=== PATIENT | female | born 1955 | race Caucasian/White ===

== ENCOUNTER 2016-09-15 17:22 | Emergency (ER) | payer OTHER ==
[~2016-09-15] VITALS: Ht 172.7 cm; Wt 74.4 kg
[2016-09-15 17:45] VITALS: BP 135/96
[2016-09-15] MEDS ORDERED: PHENERGAN/CODEIN5 ML PO (17:52)
--- NOTE | 2016-09-15 17:52 | NUR ---
Patient ambulated to bed 5. RN evaluating patient at bedside.
--- NOTE | 2016-09-15 17:52 | NUR ---
PATIENT PRESENTS TO ED WITH COUGH X 4 DAYS .DENIES N/V/D; SKIN IS PINK/WARM/DRY; AAOX4 WITH EVEN AND STEADY GAIT; LUNGS CLEAR BL; HR EVEN AND REGULAR; PT DENIES ANY FEVER, CP, SOB, AT THIS TIME; PATIENT STATES PAIN OF 0/10 AT THIS TIME; VSS; PATIENT POSITIONED FOR COMFORT; HOB ELEVATED; BEDRAILS UP X2; BED DOWN. ER MD MADE AWARE OF PT STATUS.
--- NOTE | 2016-09-15 18:03 | NUR ---
Dr. Dhaliwal evaluating patient at bedside.
[2016-09-15] MEDS ORDERED: IPRATROPIUM 0.02% 0.5 MG/2.5 ML NEBU INH ONE (18:10)
[2016-09-15] MEDS ORDERED: DEXAMETHASONE 4 MG/ML VIAL PO ONE (18:10)
[2016-09-15] MEDS ORDERED: ALBUTEROL 0.083% 2.5 MG/3 ML NEBU INH ONE (18:10)
--- NOTE | 2016-09-15 19:10 | NUR ---
RECEIVED REPORT FROM JASWINDER SANTOS. PT STABLE AWAITING FOR RESULTS.
[2016-09-15 19:20] VITALS: BP 139/91
--- NOTE | 2016-09-15 19:20 | NUR ---
Patient discharged with v/s stable. Written and verbal after care instructions given and explained. Patient alert, oriented and verbalized understanding of instructions. Ambulatory with steady gait. All questions addressed prior to discharge. ID band removed. Patient advised to follow up with PMD. Rx of CODEINE/PROMETHAZINE, AZITHROMYCIN, ALBUTEROL given. Patient educated on indication of medication including possible reaction and side effects. Opportunity to ask questions provided and answered.
== END 2016-09-15 19:20 | disposition home or self-care (01) ==
LOC: MED 17:26
DX: J45.909 Unspecified asthma, uncomplicated (principal); F17.200 Nicotine dependence, unspecified, uncomplicated; Z88.0 Allergy status to penicillin; Z88.2 Allergy status to sulfonamides; Z90.89 Acquired absence of other organs; Z71.6 Tobacco abuse counseling
CPT/HCPCS: 36415; 71010; 87804; 94640; 99285; J1100; J7613; J7644; Q0092

== ENCOUNTER 2018-05-04 12:58 | Emergency (ER) | payer OTHER ==
[~2018-05-04] VITALS: Ht 172.7 cm; Wt 76.2 kg
[~2018-05-04 12:58] MED LIST: CODE118S2 PO
[2018-05-04 13:06] VITALS: BP 153/81
--- NOTE | 2018-05-04 13:08 | NUR ---
62 Y/O F W/C/O "I FEEL LIKE I'M HAVING A REALLY BAD HOT FLASH, I FEEL LIKE MY HEART IS RACING AND I FEEL SHORT OF BREATH." PT IS 98% O2 ON THE MONITOR. PULSE 89 ON MONITOR. PT DENIES N/V/D; SKIN IS INTACT, PINK/WARM/DRY; AAOX4, PERRL, WITH EVEN AND STEADY GAIT; LUNGS CLEAR BL, BREATHING UNLABORED; HR EVEN AND REGULAR, BL PERIPHERAL PULSES PRESENT; BS ACTIVE X4, NO TENDERNESS TO PALPATION, NO HEPATOSPLENOMEGALLY PALPATED, RESONANT TO PERCUSSION; PT DENIES ANY FEVER, CP, OR COUGH AT THIS TIME; PT STATES 0/10 PAIN AT THIS TIME; VSS; PATIENT POSITIONED FOR COMFORT; HOB ELEVATED; BEDRAILS UP X2; BED DOWN.
--- NOTE | 2018-05-04 13:24 | NUR ---
EKG BEING PERFORMED BY WILD ZHANG AT THIS TIME
--- NOTE | 2018-05-04 13:37 | NUR ---
PT NOW C/O CHEST PAIN 5/10 IN L SIDE OF CHEST. NOTIFIED
--- NOTE | 2018-05-04 13:38 | NUR ---
DR. COOPER AT BEDSIDE EVALUATING
[2018-05-04] MEDS ORDERED: KETOROLAC 60 MG/2 ML VIAL IM ONE (13:45)
[2018-05-04 14:00] VITALS: BP 148/79
--- NOTE | 2018-05-04 14:01 | NUR ---
Patient discharged with v/s stable. Written and verbal after care instructions given and explained. Patient alert, oriented and verbalized understanding of instructions. Ambulatory with steady gait. All questions addressed prior to discharge. ID band removed. Patient advised to follow up with PMD. Rx of MOTRIN, ATARAX given. Patient educated on indication of medication including possible reaction and side effects. Opportunity to ask questions provided and answered.
[2018-05-04] MEDS ORDERED: ORE25 PO (19:42)
[2018-05-04] MEDS ORDERED: ACYC800T1 PO (19:42)
[2018-05-05] MEDS ORDERED: METO25TE2 PO (16:01)
[2018-05-05] MEDS ORDERED: LISI10TA11 PO (16:01)
== END 2018-05-04 14:01 | disposition home or self-care (01) ==
LOC: MED 12:58
DX: R07.89 Other chest pain (principal); R00.2 Palpitations; I10 Essential (primary) hypertension; F17.200 Nicotine dependence, unspecified, uncomplicated; Z90.89 Acquired absence of other organs; Z88.0 Allergy status to penicillin; Z88.2 Allergy status to sulfonamides; Z79.899 Other long term (current) drug therapy
CPT/HCPCS: 81002; 81025; 93005; 96372; 99283; J1885

== ENCOUNTER 2018-05-04 17:07 | Inpatient (IN) | payer OTHER ==
[~2018-05-04] VITALS: Ht 172.7 cm; Wt 76.2 kg
--- NOTE | 2018-05-04 17:14 | NUR ---
PT AMBULATES TO BED 7
[2018-05-04 17:15] VITALS: BP 144/79
--- NOTE | 2018-05-04 17:20 | NUR ---
62 Y/O F W/C/O CHEST PAIN. PT WAS SEEN HERE EARLIER TODAY FOR SAME THING. PT STATES, "I AM NOT FEELING ANY BETTER, I NEEDED TO COME BACK." PT DENIES N/V/D; SKIN IS INTACT, PINK/WARM/DRY; AAOX4, PERRL, WITH EVEN AND STEADY GAIT; LUNGS CLEAR BL, BREATHING UNLABORED; HR EVEN AND REGULAR, BL PERIPHERAL PULSES PRESENT; BS ACTIVE X4, NO TENDERNESS TO PALPATION, NO HEPATOSPLENOMEGALLY PALPATED, RESONANT TO PERCUSSION; PT DENIES ANY FEVER, SOB, OR COUGH AT THIS TIME; PT STATES 6/10 PAIN AT THIS TIME; VSS; PATIENT POSITIONED FOR COMFORT; HOB ELEVATED; BEDRAILS UP X2; BED DOWN. ER MD MADE AWARE OF STATUS. HX: HTN RX:HYDROCHLOROTHYIOZIDE ALLERGIES: PENICILLINS, SULFA
--- NOTE | 2018-05-04 17:43 | NUR ---
XRAY AT BEDSIDE
[2018-05-04 17:44] LABS: BASOPHILS % (AUTO) 0.4 % (0.0-2.0); EOSINOPHILS % (AUTO) 0.4 % (0.0-4.0); HEMATOCRIT 38.5 % (36-48); LYMPHOCYTES # (AUTO) 3.5 K/uL (2.5-16.5); LYMPHOCYTES % (AUTO) 40.2 % (20.5-51.1); MEAN CORPUSCULAR HEMOGLOBIN 29 pg (27-31); MEAN CORPUSCULAR HGB CONC 34 g/dL (33-37); MEAN CORPUSCULAR VOLUME 85.8 fL (80-94); MONOCYTES # (AUTO) 0.7 K/uL (0.8-1.0); MONOCYTES % (AUTO) 7.5 % (1.7-9.3); NEUTROPHILS # (AUTO) 4.5 K/uL (1.8-7.7); NEUTROPHILS % (AUTO) 51.5 % (42.2-75.2); PLATELET COUNT (AUTO) 366 K/uL (140-450); RED BLOOD CELL COUNT(AUTO) 4.49 MIL/uL (4.20-5.40); RED CELL DISTRIBUTION WIDTH 13.4 % (11.6-13.7); WHITE BLOOD COUNT (AUTO) 8.8 K/uL (4.8-10.8)
[2018-05-04 17:57] LABS: PROTHROMBIN TIME 10.6 secs (10.8-13.4)
[2018-05-04 18:43] LABS: ANION GAP 13.1 (8-16); CARBON DIOXIDE 24.1 mmol/L (21-32); CREATININE 0.7 mg/dL (0.6-1.3); POTASSIUM 3.2 mmol/L (3.5-5.1); TOTAL BILIRUBIN 0.7 mg/dL (0.0-1.0)
[2018-05-04 18:44] LABS: ALBUMIN 3.5 g/dL (3.4-5.0)
[2018-05-04] MEDS ORDERED: NACL 0.9% 1,000 ML IV ONE ×2 (18:50→19:50)
--- NOTE | 2018-05-04 18:55 | NUR ---
PT. RESTING COMFORTABLY IN BED, RR EVEN AND UNLABORED. VSS. WILL CONTINUE TO MONITOR.
--- NOTE | 2018-05-04 19:10 | NUR ---
Pt report given to JASWINDER COPPOLA . Transfer of care at this time.
--- NOTE | 2018-05-04 19:11 | NUR ---
PT SITTING UP IN BED, VITALS STABLE. PT WAS ABLE TO AMBULATE WITH NO ASSIST.
[2018-05-04] MEDS ORDERED: ORE25 PO (19:42)
[2018-05-04] MEDS ORDERED: ACYC800T1 PO (19:42)
[2018-05-04] MEDS ORDERED: METOPROLOL 25 MG TAB PO ONE (19:50)
[2018-05-04] MEDS ORDERED: fentaNYL 0.05 MG/ML VIAL IVP ONE (19:50)
[2018-05-04] MEDS ORDERED: ASPIRIN 81 MG TAB.CHEW PO ONE (19:50)
[2018-05-04] MEDS ORDERED: POTASSIUM CHLORIDE 10 MEQ TABER PO ONE (20:20)
[2018-05-04] MEDS ORDERED: LORazepam 2 MG/ML VIAL IVP PRN (20:25)
[2018-05-04] MEDS ORDERED: ACETAMINOPHEN 325 MG TAB PO PRN (20:25)
[2018-05-04] MEDS ORDERED: ALBUTEROL 0.083% 2.5 MG/3 ML NEBU INH PRN (20:25)
[2018-05-04] MEDS ORDERED: ONDANSETRON 4 MG/2 ML VIAL IVP PRN (20:25)
[2018-05-04] MEDS ORDERED: HYDROcodone/APAP 5/325 MG 1 TAB TAB PO PRN ×2 (20:25)
[2018-05-04] MEDS ORDERED: NITROGLYCERIN 0.4 MG TAB SL PRN (20:30)
--- NOTE | 2018-05-04 21:00 | NUR ---
Pt report given to bro salcedo. Transfer of care at this time. vitals stable
--- NOTE | 2018-05-04 21:00 | NUR ---
report to michelle salcedo in telemetry. vitals stable.
--- NOTE | 2018-05-04 21:00 | NUR ---
Patient will be admitted to care of . Admited to TELEMETRY. Will go to room 111 B. Belongings list completed. Report to michelle salcedo. vital stable
[2018-05-04 21:15] VITALS: BP 130/68
--- NOTE | 2018-05-04 21:15 | NUR ---
RECEIVED PT FROM ER VIA [facility] PT IS AAOX4 AMBULATORY ON EXTRUSION DIE COORDINATOR SR HL ON LEFT HAND GAUGE # 20, DENIES ANY CHEST PAIN ON ADMISSION PAIN MEDIC WAS GIVEN IN ER. SKIN IS INTACT MRSA NARES SCREEN TAKEN AND SENT TO LAB PT IS ORIENTED TOTHE FLOOR CALLLIGHT WITHIN REACH
[2018-05-05] VITALS: BP 111/63
--- NOTE | 2018-05-05 | NUR ---
PT AMBULATES TOTHE RESTROOM VOIDING WELL DENIES ANY CHEST PAIN, ON TELEMETRY SR 1 AV BLOCK
--- NOTE | 2018-05-05 01:36 | NUR ---
PTSLEEPING WELL NOT SIGNS OF PAIN NOTED TROPONIN # 2 0.107 TROPONIN GOING DOWN
[2018-05-05 04:00] VITALS: BP 116/53
--- NOTE | 2018-05-05 04:00 | NUR ---
SPONGE BATH GIVEN LINEN CHANGED PT REMAIN STBLE DENIES ANY PAIN ON TELMETRY SB 1 AV BLOCK
[2018-05-05 07:00] LABS: BASOPHILS # (AUTO) 0.1 K/uL (0.00-0.22); BASOPHILS % (AUTO) 0.9 % (0.0-2.0); EOSINOPHILS # (AUTO) 0.1 K/uL (0-0.4); EOSINOPHILS % (AUTO) 1.3 % (0.0-4.0); HEMATOCRIT 40.5 % (36-48); HEMOGLOBIN 13.9 g/dL (12.0-16.0); LYMPHOCYTES # (AUTO) 2.1 K/uL (2.5-16.5); LYMPHOCYTES % (AUTO) 38.9 % (20.5-51.1); MEAN CORPUSCULAR HEMOGLOBIN 30 pg (27-31); MEAN CORPUSCULAR HGB CONC 34 g/dL (33-37); MEAN CORPUSCULAR VOLUME 87.2 fL (80-94); MONOCYTES # (AUTO) 0.5 K/uL (0.8-1.0); MONOCYTES % (AUTO) 8.4 % (1.7-9.3); NEUTROPHILS # (AUTO) 2.8 K/uL (1.8-7.7); NEUTROPHILS % (AUTO) 50.5 % (42.2-75.2); PLATELET COUNT (AUTO) 369 K/uL (140-450); RED BLOOD CELL COUNT(AUTO) 4.64 MIL/uL (4.20-5.40); RED CELL DISTRIBUTION WIDTH 13.6 % (11.6-13.7); WHITE BLOOD COUNT (AUTO) 5.5 K/uL (4.8-10.8)
--- NOTE | 2018-05-05 07:10 | NUR ---
PT RESTING ON BED DENIES ANY CHEST PAON , PENDING TO BE SEEN FOR DR GRAYSON Urbano. PT WILL BE ENDORSED TODAY SHIFT NURSE FOR CONTINUITY OF CARE
--- NOTE | 2018-05-05 07:11 | NUR ---
RECEIVED REPORT FROM NUCLEAR FUELS RESEARCH ENGINEER NURSE. PATIENT SITTING IN BED COMFORTABLY. NO DISTRESS NOTED. DENIES ANY PAIN. RESPIRATIONS EVEN, UNLABORED, ON ROOM AIR. LUNGS CTA ON ALL LOBES. SKIN INTACT. AAOX4, CALM, COOPERATIVE, SKIN COLOR APPROPRIATE TO ETHNICITY, WARM TO TOUCH. IV SITE INTACT, PATENT, AND INFUSING IVF PER MD ORDERS. ABDOMEN SOFT, NON-DISTENDED. REVIEWED PLAN OF CARE WITH PATIENT. PATIENT VERBALIZED UNDERSTANDING. SAFETY MEASURES IN PLACE, CALL LIGHT WITHIN REACH. WILL CONTINUE TO MONITOR.
[2018-05-05 07:28] LABS: ALBUMIN 3.5 g/dL (3.4-5.0); ANION GAP 10.5 (8-16); CARBON DIOXIDE 27.6 mmol/L (21-32); CREATININE 0.7 mg/dL (0.6-1.3); PHOSPHORUS 4.3 mg/dL (2.5-4.9); POTASSIUM 4.1 mmol/L (3.5-5.1); TOTAL BILIRUBIN 0.5 mg/dL (0.0-1.0)
[2018-05-05 08:00] VITALS: BP 131/66
[2018-05-05] MEDS ORDERED: ASPIRIN 81 MG TAB.CHEW PO SCH (09:00)
--- NOTE | 2018-05-05 09:05 | NUR ---
PATIENT HAS BEEN SCREENED AND CATEGORIZED MODERATE NUTRITION RISK. PATIENT WILL BE SEEN WITHIN 3-5 DAYS OF ADMISSION. 05/07/18 05/09/[address]
[2018-05-05 12:00] VITALS: BP 139/60
--- NOTE | 2018-05-05 12:30 | NUR ---
RADIOLOGIST AT BEDSIDE READY TO TAKE PATIENT FOR STRESS TEST. WILL CONTINUE TO MONITOR WHEN PATIENT RETURNS ON UNIT.
--- NOTE | 2018-05-05 14:02 | NUR ---
PATIENT BACK ON UNIT. NO DISTRESS NOTED. DENIES ANY PAIN. WILL CONTINUE TO MONITOR.
[2018-05-05 14:45] LABS: BARBITURATE, URINE NEG. ng/ml (NEG <=200); BENZODIAZEPINE, URINE NEG. ng/mL (NEG <=200); CANNABINOID, URINE NEG. ng/mL (NEG <=50); COCAINE, URINE NEG. ng/mL (NEG <=300); OPIATE, URINE NEG. ng/mL (NEG <=2000); PHENCYCLIDINE SCREEN,URINE NEG. ng/mL (NEG <=25)
[2018-05-05] MEDS ORDERED: LISI10TA11 PO (16:01)
[2018-05-05] MEDS ORDERED: METO25TE2 PO (16:01)
--- NOTE | 2018-05-05 16:37 | NUR ---
DISCHARGE INSTRUCTIONS PROVIDED TO PATIENT IN PREFERRED LANGUAGE OF KYRGYZ, FOLLOW-UP VISIT WITH PCP AND DR. GALICIA, NEW/CHANGED MEDICATION REGIMEN, DIET REGIMEN. ANSWERED ALL OF PATIENT'S QUESTION REGARDING DISCHARGE. PATIENT VERBALIZED UNDERSTANDING. ALL BELONGINGS WITH PATIENT. ID BANDS REMOVED. IV SITE REMOVED WITH MINIMAL BLOOD. PATIENT TO GET DRESSED AND THEN GO HOME VIA PRIVATE VEHICLE WITH FAMILY. WILL CONTINUE TO MONITOR.
--- NOTE | 2018-05-05 16:45 | NUR ---
PATIENT ALL DRESSED UP AND READY TO GO HOME. ESCORTED PATIENT DOWN TO LOBBY VIA STEADY AMBULATION. PATIENT DISCHARGED AT THIS TIME TO HOME VIA PRIVATE VEHICLE IN STABLE CONDITION.
[2018-05-06] MEDS ORDERED: ENOXAPARIN 40 MG/0.4 ML SYR SUBQ SCH (09:00)
--- NOTE | 2018-05-06 14:46 | NUR ---
RETRO ER 'S NOTE, H&P, CONSULTATION REPORT, DISCHARGE SUMMARY, PATIENT VISIT REPORT FAXED TO [facility] [phone] MARK # [phone]
== END 2018-05-05 16:45 | disposition home or self-care (01) | DRG 190 ==
LOC: MED 17:07 → MTU 20:29
PROVIDERS: ADMIT Hospitalist; ATTEND Hospitalist
DX: I21.A1 Myocardial infarction type 2 (principal); E87.1 Hypo-osmolality and hyponatremia; E87.8 Other disorders of electrolyte and fluid balance, not elsewhere classified; J44.9 Chronic obstructive pulmonary disease, unspecified; E87.6 Hypokalemia; I10 Essential (primary) hypertension; F17.200 Nicotine dependence, unspecified, uncomplicated; T50.2X5A Adverse effect of carbonic-anhydrase inhibitors, benzothiadiazides and other diuretics, initial encounter; M41.9 Scoliosis, unspecified; M19.90 Unspecified osteoarthritis, unspecified site; Z90.721 Acquired absence of ovaries, unilateral; Z82.49 Family history of ischemic heart disease and other diseases of the circulatory system; Z88.0 Allergy status to penicillin; Z88.2 Allergy status to sulfonamides
CPT/HCPCS: 36415; 71045; 80053; 80305; 83880; 84100; 84484; 85025; 85610; 85730; 87081; 93005; 93017; 96361; 96374; 99285; J3010; J7030; Q0092

== ENCOUNTER 2019-04-18 12:36 | Emergency (ER) | payer OTHER ==
[~2019-04-18] VITALS: Ht 170.2 cm; Wt 78.5 kg
[~2019-04-18 12:36] MED LIST changes: +ACYC800T1 PO; +LISI10TA11 PO; +METO25TE2 PO
[2019-04-18 12:59] VITALS: BP 125/85
[2019-04-18] MEDS ORDERED: PHENAZOPYRIDINE 100 MG TAB PO ONE (14:10)
[2019-04-18 14:59] LABS: BASOPHILS % (AUTO) 0.1 % (0.0-2.0); EOSINOPHILS # (AUTO) 0.1 K/uL (0-0.4); EOSINOPHILS % (AUTO) 0.5 % (0.0-4.0); HEMATOCRIT 41.8 % (36-48); HEMOGLOBIN 14.1 g/dL (12.0-16.0); LYMPHOCYTES # (AUTO) 2.1 K/uL (2.5-16.5); LYMPHOCYTES % (AUTO) 19.7 % (20.5-51.1); MEAN CORPUSCULAR HEMOGLOBIN 30 pg (27-31); MEAN CORPUSCULAR HGB CONC 34 g/dL (33-37); MEAN CORPUSCULAR VOLUME 88.2 fL (80-94); MONOCYTES # (AUTO) 0.6 K/uL (0.8-1.0); MONOCYTES % (AUTO) 5.9 % (1.7-9.3); NEUTROPHILS # (AUTO) 7.8 K/uL (1.8-7.7); NEUTROPHILS % (AUTO) 73.8 % (42.2-75.2); PLATELET COUNT (AUTO) 388 K/uL (140-450); RED BLOOD CELL COUNT(AUTO) 4.74 MIL/uL (4.20-5.40); RED CELL DISTRIBUTION WIDTH 13.9 % (11.6-13.7); WHITE BLOOD COUNT (AUTO) 10.6 K/uL (4.8-10.8)
[2019-04-18 15:27] LABS: APPEARANCE,URINE CLOUDY (CLEAR); BILIRUBIN,URINE 1+ (NEGATIVE); BLOOD, URINE 3+ (NEGATIVE); COLOR,URINE RED (YELLOW); LEUKOCYTE ESTERASE ,URINE 2+ (NEGATIVE); NITRITE, URINE POSITIVE (NEGATIVE); PH,URINE 6.5 (5.0-9.0); UGLUCOSE NEGATIVE (NEGATIVE)
[2019-04-18 15:44] LABS: ALBUMIN 3.6 g/dL (3.4-5.0); CARBON DIOXIDE 28.4 mmol/L (21-32); CREATININE 0.9 mg/dL (0.6-1.3); POTASSIUM 4.4 mmol/L (3.5-5.1); TOTAL BILIRUBIN 0.2 mg/dL (0.0-1.0)
[2019-04-18] MEDS ORDERED: NACL 0.9% 1,000 ML IV ONE (15:50)
[2019-04-18] MEDS ORDERED: LEVOFLOXACIN 500 MG/D5W PREMIX 100 ML IV ONE (15:50)
[2019-04-18 15:58] LABS: RBC,URINE TOO NUMEROUS TO COUN /HPF (0-5)
[2019-04-18] MEDS ORDERED: KETOROLAC 30 MG/ML VIAL IVP ONE (17:10)
[2019-04-18] MEDS ORDERED: KETOROLAC 30 MG/ML VIAL ONE (17:23)
[2019-04-18 17:42] VITALS: BP 119/57
[2019-04-18 17:49] LABS: PROTHROMBIN TIME 9.1 secs (10.8-13.4)
== END 2019-04-18 17:43 | disposition home or self-care (01) ==
LOC: MED 12:36
DX: N39.0 Urinary tract infection, site not specified (principal); I10 Essential (primary) hypertension; Z79.899 Other long term (current) drug therapy; Z88.0 Allergy status to penicillin; Z88.2 Allergy status to sulfonamides
CPT/HCPCS: 36415; 76770; 80053; 81001; 85025; 85610; 85730; 86886; 86900; 86901; 87086; 87186; 96365; 96375; 99284; J1885; J1956; J7030; Q0092

== ENCOUNTER 2019-04-22 08:43 | Emergency (ER) | payer OTHER ==
[~2019-04-22] VITALS: Ht 172.7 cm; Wt 78.0 kg
[2019-04-22 08:47] VITALS: BP 136/91
--- NOTE | 2019-04-22 08:55 | NUR ---
Patient ambulated to bed 3
--- NOTE | 2019-04-22 09:16 | NUR ---
C/O SOB X3 DAY, PT WAS RECENTLY SEEN AT [facility] FOR A UTI AND WAS GIVEN LEVAQUIN. PT WENT TO URGENT CARE YESTERDAY AND WAS GIVEN A BREATHING TREATMENT AND ALBUTEROL. O2 SAT 97% RA, PT PRESENTS WITH MOIST COUGH, AND LABORED RESPIRATIONS. LUNGS CTAB. HX: HTN, KIDNEY CYSTS RX: METOPROLOL & LISINOPRIL Addendum: 04/22/19 at 0921 by ISHAAN SOB X 4 DAYS. C/O 10 BL INTERCOSTAL PAIN WITH COUGHING.
[2019-04-22] MEDS ORDERED: ALBUTEROL 0.083% 2.5 MG/3 ML NEBU INH ONE (09:35)
[2019-04-22] MEDS ORDERED: predniSONE 20 MG TAB PO ONE (09:35)
--- NOTE | 2019-04-22 09:54 | NUR ---
DIGITAL MARKETER HERE TO TAKE PATIENT FOR XRAY.
--- NOTE | 2019-04-22 10:10 | NUR ---
hhn therapy and respiratory drugs given as ordered
--- NOTE | 2019-04-22 10:13 | NUR ---
RT AT BEDSIDE.
[2019-04-22 10:57] VITALS: BP 136/60
--- NOTE | 2019-04-22 10:57 | NUR ---
Patient discharged with v/s stable. Written and verbal after care instructions given and explained. Patient alert, oriented and verbalized understanding of instructions. Ambulatory with steady gait. All questions addressed prior to discharge. ID band removed. Patient advised to follow up with PMD. Rx of VENTOLIN given. Patient educated on indication of medication including possible reaction and side effects. Opportunity to ask questions provided and answered.
== END 2019-04-22 10:57 | disposition home or self-care (01) ==
LOC: MED 08:43
DX: J06.9 Acute upper respiratory infection, unspecified (principal); J98.01 Acute bronchospasm; I10 Essential (primary) hypertension; Z88.0 Allergy status to penicillin; Z88.2 Allergy status to sulfonamides; Z79.899 Other long term (current) drug therapy
CPT/HCPCS: 71046; 94640; 99283; J7512; J7613

== ENCOUNTER 2019-10-05 13:20 | Inpatient (IN) | payer OTHER ==
[~2019-10-05] VITALS: Ht 162.6 cm; Wt 78.2 kg
[2019-10-05 13:52] VITALS: BP 90/70
--- NOTE | 2019-10-05 14:12 | NUR ---
64YO F C/O LEFT-SIDED CHEST PAIN X 2 DAYS. PT STATES 6/10 SQUEEZING PAIN WHICH RADIATES TO HER LEFT NECK AND LOWER BREAST. ADMITS TO PALPITATIONS AND NAUSEA, DENIES VOMITING, . PT TOOK MOTRIN AT 1PM, WHICH PROVIDED MILD RELIEF. IN ER, PT NOT IN DISTRESS. NRRR. CBS ON ALL LUNG LYON. PT RESTING IN BED COMFORTABLY. ERMD MADE AWARE. PMH: HTN
--- NOTE | 2019-10-05 14:26 | NUR ---
XRAY AT BEDSIDE
[2019-10-05] MEDS ORDERED: ASPIRIN 81 MG TAB.CHEW PO ONE (14:30)
[2019-10-05] MEDS ORDERED: NACL 0.9% 1,000 ML IV ONE (14:30)
--- NOTE | 2019-10-05 14:40 | NUR ---
LAB AT BEDSIDE
[2019-10-05 14:50] LABS: BASOPHILS % (AUTO) 0.4 % (0.0-2.0); EOSINOPHILS % (AUTO) 0.4 % (0.0-4.0); HEMATOCRIT 41.1 % (36-48); HEMOGLOBIN 13.6 g/dL (12.0-16.0); LYMPHOCYTES # (AUTO) 2.3 K/uL (2.5-16.5); LYMPHOCYTES % (AUTO) 27.3 % (20.5-51.1); MEAN CORPUSCULAR HEMOGLOBIN 30 pg (27-31); MEAN CORPUSCULAR HGB CONC 33 g/dL (33-37); MEAN CORPUSCULAR VOLUME 89.5 fL (80-94); MONOCYTES # (AUTO) 0.8 K/uL (0.8-1.0); MONOCYTES % (AUTO) 9.4 % (1.7-9.3); NEUTROPHILS # (AUTO) 5.4 K/uL (1.8-7.7); NEUTROPHILS % (AUTO) 62.5 % (42.2-75.2); PLATELET COUNT (AUTO) 387 K/uL (140-450); RED CELL DISTRIBUTION WIDTH 13.9 % (11.6-13.7); WHITE BLOOD COUNT (AUTO) 8.6 K/uL (4.8-10.8)
[2019-10-05 15:16] LABS: ALBUMIN 3.4 g/dL (3.4-5.0); ANION GAP 11.6 (8-16); CARBON DIOXIDE 29.3 mmol/L (21-32); CREATININE 0.8 mg/dL (0.6-1.3); POTASSIUM 3.9 mmol/L (3.5-5.1); TOTAL BILIRUBIN 0.3 mg/dL (0.0-1.0)
[2019-10-05] MEDS ORDERED: NITROGLYCERIN 0.4 MG TAB SL ONE (15:50)
[2019-10-05] MEDS ORDERED: LISI-424 PO (16:29)
[2019-10-05] MEDS ORDERED: NITROGLYCERIN 2% 1 GM PKT TP ONE (17:10)
[2019-10-05] MEDS ORDERED: MORPHINE SULFATE 2 MG/ML SYR IVP PRN (17:30)
[2019-10-05] MEDS ORDERED: ACETAMINOPHEN 325 MG TAB PO PRN (17:30)
[2019-10-05] MEDS ORDERED: ZOLPIDEM 5 MG TAB PO PRN (17:30)
[2019-10-05] MEDS ORDERED: HEPARIN PER PHARMACY MC PRN (17:30)
[2019-10-05] MEDS ORDERED: NITROGLYCERIN 0.4 MG TAB SL PRN (17:30)
[2019-10-05] MEDS ORDERED: ALUMINUM HYD/MAG/SIMETHICONE 30 ML UDC PO PRN (17:30)
[2019-10-05] MEDS ORDERED: ONDANSETRON 4 MG/2 ML VIAL IVP PRN (17:30)
[2019-10-05 17:31] LABS: PROTHROMBIN TIME 9.4 secs (10.8-13.4)
--- NOTE | 2019-10-05 18:30 | NUR ---
PATIENT ARRIVED ON THE UNIT. ORIENTED PT TO UNIT AND ROOM. PT APPEARS STABLE AND IN NO APPARENT DISTRESS. PT IS AMBULATORY AND A0X4. VITALS ARE WITHIN NORMAL LIMITS WILL ENDORSE ADMISSION TO TOMBSTONE ERECTOR RN
--- NOTE | 2019-10-05 18:35 | NUR ---
Patient will be admitted to care of DR DEVINE. Admited to TELEMETRY. Will go to room 116. Belongings list completed. Report to JASWINDER CHOWDARY.
[2019-10-05] MEDS: hePARIN / DEXT 5% PREMIX 250 ML IV SCH (20:17)
--- NOTE | 2019-10-05 20:28 | NUR ---
PT. STARTED HEPARIN DRIP AT 9 ML PER HOUR AND BOLUS OF 4000 UNITS ORDERED. ABLE TO VERBALIZE NEEDS WELL IN NEPALI. CALL LIGHT WITH IN REACH. SEEN PT. WALKING AROUND ROOM. ENCOURAGED TO CALL FOR ANY HELP OR ANY PAIN SHE MIGHT HAVE. "OK" SKIN INTACT AND EDEMA. STAB.
[2019-10-05 20:57] VITALS: BP 110/57
[2019-10-05] MEDS ORDERED: METOPROLOL 25 MG TAB PO SCH (21:00)
[2019-10-06] VITALS: BP 107/50
[2019-10-06 02:17] LABS: BASOPHILS % (AUTO) 0.3 % (0.0-2.0); EOSINOPHILS # (AUTO) 0.1 K/uL (0-0.4); EOSINOPHILS % (AUTO) 0.9 % (0.0-4.0); HEMATOCRIT 37.9 % (36-48); HEMOGLOBIN 12.5 g/dL (12.0-16.0); LYMPHOCYTES # (AUTO) 3.2 K/uL (2.5-16.5); MEAN CORPUSCULAR HEMOGLOBIN 30 pg (27-31); MEAN CORPUSCULAR HGB CONC 33 g/dL (33-37); MEAN CORPUSCULAR VOLUME 89.6 fL (80-94); MONOCYTES # (AUTO) 0.6 K/uL (0.8-1.0); MONOCYTES % (AUTO) 8.4 % (1.7-9.3); NEUTROPHILS # (AUTO) 3.4 K/uL (1.8-7.7); NEUTROPHILS % (AUTO) 46.4 % (42.2-75.2); PLATELET COUNT (AUTO) 322 K/uL (140-450); RED BLOOD CELL COUNT(AUTO) 4.23 MIL/uL (4.20-5.40); RED CELL DISTRIBUTION WIDTH 13.9 % (11.6-13.7); WHITE BLOOD COUNT (AUTO) 7.4 K/uL (4.8-10.8)
--- NOTE | 2019-10-06 02:42 | NUR ---
PTT BLOOD SPECIMEN TAKEN BY STOCK CONTROLLER. NO COMPLAINTS OF ANY PAIN. BEEN SLEEPING PRIOR PROCEDURE.
[2019-10-06] MEDS: hePARIN / DEXT 5% PREMIX 250 ML IV SCH (03:05)
[2019-10-06 04:00] VITALS: BP 105/60
[2019-10-06 05:30] LABS: ALBUMIN 3.1 g/dL (3.4-5.0); ANION GAP 11.3 (8-16); CARBON DIOXIDE 26.3 mmol/L (21-32); CREATININE 0.8 mg/dL (0.6-1.3); POTASSIUM 3.6 mmol/L (3.5-5.1); TOTAL BILIRUBIN 0.3 mg/dL (0.0-1.0)
--- NOTE | 2019-10-06 05:48 | NUR ---
PT. SLEEPING WELL THIS SHIFT. HEPARIN DRIP DOSING THE SAME RATE RT PTT 56 FOR 0211. NO CHANGES DONE. IVF SITE INTACT AND NO INFILTRATION. TELEMETRY MONITORING. A/O X 4. ROM X 4.CLEAR SPEECH.
--- NOTE | 2019-10-06 07:26 | NUR ---
RECEIVED BEDSIDE REPORT FROM HOOP FLARING MACHINE OPERATOR HELPER NURSE ALIDA FROM CONTINUITY OF CARE. PT AWAKE AND RESTING ON BED. RESPIRATION EVEN AND UNLABORED ON RA. NO SIGNS OF DISTRESS NOTED. IV ON L HAND 22G, CLEAN AND INTACT, INFUSING HEPARIN DRIP AT 9 ML/HR AT THIS TIME. SKIN CLEAN AND DRY. PT IS CONTINENT AND ABLE TO AMBULATE. DISCUSSED PLAN OF CARE WITH PT AND PT VERBALIZED UNDERSTANDING. TELE MONITOR ATTACHED. CONTACT PRECAUTION IN PLACE. SAFETY MEASURES IN PLACE. INSTRUCTED PT TO USE THE CALL LIGHT FOR ANY ASSISTANCE AND PT AWARE.
[2019-10-06 08:00] VITALS: BP 115/70
--- NOTE | 2019-10-06 08:28 | NUR ---
PATIENT HAS BEEN SCREENED AND CATEGORIZED MODERATE NUTRITION RISK. PATIENT WILL BE SEEN WITHIN 3-5 DAYS OF ADMISSION. 10/08/19 10/10/[address]
[2019-10-06] MEDS: ASPIRIN 81 MG TAB.CHEW PO SCH (09:00)
[2019-10-06] MEDS: DOCUSATE SODIUM 100 MG GELCAP PO SCH (09:00)
--- NOTE | 2019-10-06 09:23 | NUR ---
RECEIVED PTT LAB RESULT FROM LAB 51.3. CHECKED PROTOCOL PER PHARMACY, NO CHANGE NEEDED. CONTINUE WITH THE CURRENT INFUSING RATE 9 ML/HR. ORDER THE NEXT PTT DRAW.
--- NOTE | 2019-10-06 09:41 | NUR ---
PT REFUSED AM MEDS. MEDS EDUCATION PROVIDED TO PT AND PT INSISTING NOT WANT TO TAKE THEM AND STATED, " I JUST WENT TO THE BATHROOM SO I DON'T NEED TO STOOL SOFTENER. AND THE ASPIRIN MADE MY STOMACH SO GASSY. I DON'T NEED ANY OF THEM." WILL RETURN MEDS TO [facility]. PT AWAKE AND READING HER BOOK ON BED. NO SIGNS OF DISTRESS NOTED. TELE MONITOR ATTACHED. PT REQUESTED TO KEEP DOOR CLOSED BECAUSE SHE DOESN'T WANT ANY NOISE. CLOSED PER REQUEST. SAFETY MEASURES IN PLACE. BED IN LOW POSITION AND CALL LIGHT WITHIN REACH. INSTRUCTED PT TO USE THE CALL LIGHT FOR ANY ASSISTANCE AND PT AWARE.
--- NOTE | 2019-10-06 11:23 | NUR ---
PT AWAKE AND RESTING ON BED. NO SIGNS OF ACUTE DISTRESS AND BLEEDING NOTED. TELE MONITOR ATTACHED. SAFETY MEASURES IN PLACE.
[2019-10-06 12:00] VITALS: BP 123/59
--- NOTE | 2019-10-06 13:15 | NUR ---
DR DEVINE IS ASSESSING AND TALKING TO PT AND FAMILY AT BEDSIDE. NO SIGNS OF DISTRESS NOTED. TELE MONITOR ATTACHED. SAFETY MEASURES IN PLACE.
--- NOTE | 2019-10-06 13:42 | NUR ---
Clinical Rn Manager Note: Basic Screen: Yes High Risk DC Screen [place]: ZURI Jones Relationship: FRIEND Pre-Admission Living Arrangements: Lives with Other Prior ADL Independent Current Home Health Name/Tel: N/A Current DME/02 Name/Tel: N/A Current Hospice Name/Tel: N/A Current Dialysis Name/Tel: N/A Healthcare Decision Maker: Patient Advance Directive No Physician Orders for Life Sustaining Treatment Form No Patient/Family Have Educational Needs No Information Taught: Advance Directive Person Taught: Patient Teaching Tools: Verbal Factors Affecting Learning: None Participation Level: Refused Evaluation: Verbalizes Understanding Needs Additional Education: No Discipline: Case Mgt/Social Svcs Tentative Discharge Plan/Destination: No Needs Identified Will require assistance post discharge: No Referred to [facility]: No Tentative Discharge Plan Summary: Patient is a 64-year-old female admitted for STEMI. Patient has PMHX of hypertension and dyslipedemia. Patient was admitted from home where she lives iwth her two grandchildren. SW met with patient at bedside to verify demographics. Patient reported no history of mental health and no history of substance abuse. Patient's tentative discharge plan is to return home. No further needs identified. Signature: DOMINIC Garnett Date: Oct 06, 2019 Time: 13:41
--- NOTE | 2019-10-06 14:44 | NUR ---
RECEIVED TROPONIN RESULT FOR 0.[address] GALICIA AT [phone]. DR GALICIA WAS AWARE. PER DR GALICIA, CONTINUE ON HEPARIN DRIP.
--- NOTE | 2019-10-06 15:29 | NUR ---
PT AWAKE AND RESTING ON BED. DENIED CHEST PAIN, SOB AND DIZZINESS. NO SIGNS OF ACUTE DISTRESS AND BLEEDING. TELE MONITOR ATTACHED. SAFETY MEASURES IN PLACE.
--- NOTE | 2019-10-06 15:45 | NUR ---
APPLIED HEATING PAD ON PT'S SHOULDERS. PT AWAKE AND RESTING ON BED. NO SIGNS OF DISTRESS NOTED. TELE MONITOR ATTACHED.
[2019-10-06 16:00] VITALS: BP 126/70
--- NOTE | 2019-10-06 17:50 | NUR ---
PT IS READING BOOK ON BED. DENIED PAIN, SOB AND DIZZINESS. NO SIGNS OF DISTRESS NOTED. TELE MONITOR ATTACHED. SAFETY MEASURES IN PLACE.
--- NOTE | 2019-10-06 19:22 | NUR ---
ENDORSED PT AT BEDSIDE TO CAREER COORDINATOR NURSE FOR CONTINUITY OF CARE. PT AWAKE AND TALKING TO FRIEND BY BEDSIDE. NO SIGNS OF DISTRESS NOTED. PT IS IN STABLE CONDITION. TELE MONITOR ATTACHED. SAFETY MEASURES IN PLACE.
--- NOTE | 2019-10-06 19:30 | NUR ---
RECEIVED REPORT FROM DAYSHIFT NURSE AT PATIENTS BEDSIDE, PATIENT AWAKE AND ALERT, ABLE TO MAKE NEEDS KNOWN, FOLLOWS ALL COMMANDS. ON ROOM AIR, LUNG SOUNDS CLEAR, NO SOB. S1S2, CONNECTED TO [employer]CHO[employer]RARY MEDIA SPECIALIST, HR ELEVATED-103BPM. SKIN INTACT, WARM AND DRY, AFEBRILE. LEFT HAND 22G PERIPHERAL IV, FLUSHED AND PATENT WITHOUT SYMPTOMS, INFUSING HEPARIN DRIP AT 9ML/HR. ABDOMEN SOFT AND NONTENDER, ACTIVE BOWEL SOUNDS, PATIENT IS CONTINENT, AMBULATES TO RESTROOM. ON CONTACT ISOLATION PRECAUTIONS FOR HX MDRO OF URINE. PATIENT UPDATED ON CARE PLAN AND ORIENTED TO CALL LIGHT. COMPLAINING OF PAIN AT LEFT SHOULDER, DENIES CHEST PAIN. SAFETY ALARMS IN PLACE, WILL FOLLOWUP ON PAIN MEDS/ORDERS.
[2019-10-06 20:00] VITALS: BP 122/62
--- NOTE | 2019-10-06 20:08 | NUR ---
DR. GALICIA IN TO ASSESS PATIENT AND TO ANSWER ALL QUESTIONS.
[2019-10-06] MEDS ORDERED: traMADol 50 MG TAB ONE (21:20)
[2019-10-06] MEDS: traMADol 50 MG TAB PO PRN (21:30)
--- NOTE | 2019-10-06 22:30 | NUR ---
ASSISTING RT WITH EKG, PATIENT EDUCATED ON EXAM AND VERBALIZES UNDERSTANDING. ASSISTED PATIENT TO RESTROOM, ABLE TO INDEPENDENTLY AMBULATE. ON CONTINUOUS HEPARIN DRIP AT 9ML/HR. PATIENT VOIDED, AND BACK TO BED WITHOUT INCIDENT. CALL LIGHT WITHIN REACH, VERBALIZES PAIN HAS IMPROVED AFTER MEDICATION.
[2019-10-07] VITALS: BP 132/40
--- NOTE | 2019-10-07 00:20 | NUR ---
NEW BAG OF HEPARIN HUNG, AT 9ML/HR. LAB DRAW SCHEDULED AND ORDERED FOR 0811. PATIENT IS UPDATED ON TREATMENT AND VERBALIZES UNDERSTANDING. IV SITE DRY AND CLEAN AND INTACT. ON ROOM AIR, WILL CONTINUE TO MONITOR.
[2019-10-07] MEDS: hePARIN / DEXT 5% PREMIX 250 ML IV SCH (01:16)
[2019-10-07] MEDS: traMADol 50 MG TAB PO PRN (01:17)
--- NOTE | 2019-10-07 02:15 | NUR ---
PT ABLE TO SELF TURN AND REPOSITION. AMBULATES TO RESTROOM, SKIN INTACT. SEEN WITH EYES CLOSED, FLACC 0, VISIBLE CHEST RISE AND FALL, ON MONITOR SR-ST, SINUS TACH WHEN UP AND MOVING AROUND. SAFETY ALARMS IN PLACE, SIDERAILS UP x2. WILL CONTINUE FREQUENT ROUNDS.
[2019-10-07 04:00] VITALS: BP 128/57
--- NOTE | 2019-10-07 04:20 | NUR ---
PATIENT ALERT TO VOICE, VITALS WNL. PATIENT DENIES PAIN AND RATES IT 3/10 AND REPORTS IT HAS BEEN THE BEST SINCE FRIDAY (TRAMADOL IS EFFECTIVE). PATIENT REQUESTING TOWELS AND CLEAN GOWN AND SOCKS, PROVIDED ALL NEEDS, PATIENT WILL SHOWER WHEN HER DAUGHTER BRINGS TOILETRY SUPPLIES FROM HOME.
--- NOTE | 2019-10-07 07:35 | NUR ---
RECEIVED PT FROM VETERINARY MEDICAL OFFICER NURSE, ANAT, PT IS AWAKE AND SEATED ON THE BED, ON ROOM AIR, WITH HEPARIN INFUSING AT 9ML/HR ON THE LEFT HAND G. 22, NEXT PTT SCHEDULE D AT 0800 TODAY, TEACHINGS AND NECESSARY PRECAUTION INITIATED AND PT VERBALIZED UNDERSTANDING, WILL MONITOR PT.
--- NOTE | 2019-10-07 07:40 | NUR ---
PT WAS INSTRUCTED THAT SHE WILL BE NPO FOR THE PROCEDURE SCHEDULED FOR TODAY FOR HER AND PT VERBALIZED UNDERSTANDING.
[2019-10-07 08:00] VITALS: BP 130/73
[2019-10-07 08:59] LABS: BASOPHILS % (AUTO) 0.7 % (0.0-2.0); EOSINOPHILS # (AUTO) 0.1 K/uL (0-0.4); EOSINOPHILS % (AUTO) 1.2 % (0.0-4.0); HEMATOCRIT 37.1 % (36-48); HEMOGLOBIN 12.8 g/dL (12.0-16.0); LYMPHOCYTES # (AUTO) 2.2 K/uL (2.5-16.5); LYMPHOCYTES % (AUTO) 41.3 % (20.5-51.1); MEAN CORPUSCULAR HEMOGLOBIN 30 pg (27-31); MEAN CORPUSCULAR HGB CONC 35 g/dL (33-37); MEAN CORPUSCULAR VOLUME 86.5 fL (80-94); MONOCYTES # (AUTO) 0.5 K/uL (0.8-1.0); MONOCYTES % (AUTO) 8.7 % (1.7-9.3); NEUTROPHILS # (AUTO) 2.5 K/uL (1.8-7.7); NEUTROPHILS % (AUTO) 48.1 % (42.2-75.2); PLATELET COUNT (AUTO) 310 K/uL (140-450); RED BLOOD CELL COUNT(AUTO) 4.28 MIL/uL (4.20-5.40); RED CELL DISTRIBUTION WIDTH 13.9 % (11.6-13.7); WHITE BLOOD COUNT (AUTO) 5.3 K/uL (4.8-10.8)
[2019-10-07] MEDS: ASPIRIN 81 MG TAB.CHEW PO SCH (09:00)
[2019-10-07] MEDS: DOCUSATE SODIUM 100 MG GELCAP PO SCH (09:00)
[2019-10-07 09:22] LABS: ALBUMIN 3.3 g/dL (3.4-5.0); ANION GAP 7.9 (8-16); CARBON DIOXIDE 31.5 mmol/L (21-32); CREATININE 0.7 mg/dL (0.6-1.3); POTASSIUM 4.4 mmol/L (3.5-5.1); TOTAL BILIRUBIN 0.3 mg/dL (0.0-1.0)
--- NOTE | 2019-10-07 09:56 | NUR ---
SPOKE TO DR. CHIKI GALICIA AND INFORMED MD THAT PT'S PTT LEVEL IS 49, AND AWAITING INFO REGARDING THE PT'S TRANSFER TO [facility], MD MADE A TELEPHONE ORDER TO DISCONTINUE HEPARIN DRIP PRIOR TO TRANSFER TO [facility], READ BACK AND VERIFIED AND WILL CARRY OUT ORDER.
--- NOTE | 2019-10-07 10:00 | NUR ---
SCHEDULED MORNING MEDICATIONS NOT GIVEN. PT. REFUSED. PT. IS AWARE OF THE RISK AND BENEFITS OF MEDICATIONS. WILL CONTINUE TO MONITOR.
--- NOTE | 2019-10-07 10:53 | NUR ---
be planning CALLED [facility] [phone] SPOKE WITH LIBIA, PT IS SCHEDULED AT 1:30 ARRANGED TRANSPORT WITH [facility] CHIEF HYDROELECTRIC STATION OPERATOR TIME WITH IN 45 MIN NOTIFIED SHENA SAN
--- NOTE | 2019-10-07 11:00 | NUR ---
CALLED DR. CHIKI GALICIA AND INFORMED MD THAT PT IS CONFIRMED TO BE TRANSFERRED TO [facility]. MD WEIR TELEPHONE ORDER TO DISCONTINUE HEPARIN DRIP TO THE PT, VERIFIED AND READ BACK, WILL CARRY OUT.
[2019-10-07] MEDS ORDERED: PNEUMOCOCCAL VACCINE 23 MCG/0.5 ML VIAL IMVAC SCH (11:10)
--- NOTE | 2019-10-07 11:21 | NUR ---
HEPARIN IS STOPPED AND PNEUMONIA VACCINE IS GIVEN PER PT.'S REQUEST. PT. TOLERATED WELL. WILL CONTINUE TO MONITOR.
--- NOTE | 2019-10-07 11:30 | NUR ---
SPOKE TO DR. DEVINE AND INFORMED MD THAT PT WILL BE TRANSFERRED TODAY TO [facility],FOR CARDIAC CATHETERIZATION, AND THAT DR. MONET WAS INFORMED ALSO, MD MADE A TELEPHONE ORDER TO PLACE THE DISCHARGE ORDER FOR THE PT.
[2019-10-07 11:45] VITALS: BP 104/85
--- NOTE | 2019-10-07 11:45 | NUR ---
DISCHARGED PT TO [facility] VIA [facility] TRANSPORT PERSONNEL, HEART MONITOR REMOVED AND IV LINE WAS KEPT INTACT ON THE LEFT HAND, G. 22 ON SALINE LOCK, ARM BAND WAS REMOVED. PT IS STABLE, DENIES PAIN AND NO SIGN OF DISTRESS NOTED.
== END 2019-10-07 11:50 | disposition short-term general hospital (02) | DRG 190 ==
LOC: MED 13:20 → MTU 17:29
PROVIDERS: ADMIT Hospitalist; ATTEND Hospitalist
DX: I21.4 Non-ST elevation (NSTEMI) myocardial infarction (principal); R57.0 Cardiogenic shock; I27.20 Pulmonary hypertension, unspecified; M79.18 Myalgia, other site; I10 Essential (primary) hypertension; M19.90 Unspecified osteoarthritis, unspecified site; I08.1 Rheumatic disorders of both mitral and tricuspid valves; F17.200 Nicotine dependence, unspecified, uncomplicated; E78.5 Hyperlipidemia, unspecified; Z88.0 Allergy status to penicillin; Z88.2 Allergy status to sulfonamides; Z79.899 Other long term (current) drug therapy; Z90.49 Acquired absence of other specified parts of digestive tract; Z90.721 Acquired absence of ovaries, unilateral; Z71.6 Tobacco abuse counseling
CPT/HCPCS: 36415; 71045; 80053; 83036; 83735; 83880; 84484; 85025; 85610; 85730; 87081; 90732; 93005; 96360; 99285; J1644; Q0092